=== PATIENT | female | born 1975 | race Caucasian/White ===

== ENCOUNTER 2017-12-23 10:39 | Outpatient (CLI) | payer MEDICAID ==
--- NOTE | 2017-12-24 16:37 | Mammography Report ---
SCREENING MAMMOGRAM: 12/23/2017 CLINICAL INDICATION: A 42-year-old nulliparous patient for baseline. TECHNIQUE: Routine CC and MLO projections and bilateral laterally exaggerated craniocaudal views were obtained of the breasts. FINDINGS: The breasts demonstrate heterogeneously dense fibroglandular parenchyma bilaterally. No suspicious masses, clustered microcalcifications, or regions of architectural distortion are identified. IMPRESSION: NEGATIVE EXAMINATION. RECOMMENDATION: Routine annual screening unless otherwise clinically indicated. BIRADS CATEGORY 1--NEGATIVE. STANDARD QUALIFYING STATEMENTS: 1. This examination was reviewed with the aid of Computer-Aided Detection (CAD) . 2. A negative or benign imaging report should not delay biopsy if clinically suspicious findings are present. Consider surgical consultation if warranted. More than 5 % of cancers are not identified by imaging. 3. Dense breasts may obscure an underlying neoplasm. TD: 12/24/2017 16:36 CHEO
== END 2017-12-23 10:40 | disposition home or self-care (01) ==
LOC: DI.S 10:39
PROVIDERS: ATTEND Nurse Practitioner Family
DX: Z12.31 Encounter for screening mammogram for malignant neoplasm of breast (principal)
CPT/HCPCS: 77067

== ENCOUNTER 2018-01-12 11:53 | Outpatient (CLI) | payer MEDICAID ==
[2018-01-12 17:50] LABS: BASOPHILS % (AUTO) 0.4 %; EOSINOPHILS # (AUTO) 0.1 10^3/uL (0.0-0.7); HGB - HEMOGLOBIN 13.1 g/dL (12.0-16.0); MEAN CORPUSCULAR HEMOGLOBIN 32.8 pg (27.0-31.0); MEAN CORPUSCULAR HGB CONC 33.1 g/dL (32.0-36.0); MEAN CORPUSCULAR VOLUME 99.2 fL (81.0-99.0); MEAN PLATELET VOLUME 7.9 fL (7.9-10.8); MONOCYTES # (AUTO) 0.5 10^3/uL (0.0-1.0); MONOCYTES % (AUTO) 9.6 %; NEUTROPHILS # (AUTO) 2.8 10^3/uL (1.5-6.6); PLT - PLATELET COUNT 274 10^3/uL (130-450); RED CELL DISTRIBUTION WIDTH 12.7 % (12.0-15.0); WHITE BLOOD COUNT 5.4 x10^3/uL (4.8-10.8)
[2018-01-12 17:57] LABS: ALBUMIN 4.3 g/dL (3.2-5.5); ALBUMIN/GLOBULIN RATIO 1.7 (1.0-2.2); BILIRUBIN,TOTAL 0.6 mg/dL (0.2-1.0); CALCIUM 9.6 mg/dL (8.5-10.3); CREATININE 0.7 mg/dL (0.4-1.0); TOTAL PROTEIN 6.8 g/dL (6.7-8.2)
[2018-01-12 18:13] LABS: T4 (THYROXINE) 5.87 ug/dL (6.09-12.23)
[2018-01-12 18:16] LABS: THYROID STIMULATING HORMONE 1.33 uIU/mL (0.34-5.60)
[2018-01-12 18:21] LABS: FREE T4 (FREE THYROXINE) 0.83 ng/dL (0.58-1.64)
[2018-01-12 18:44] LABS: FOLLICLE STIMULATING HORMONE 16.34 mIU/mL
[2018-01-12 18:45] LABS: LUTEINIZING HORMONE 8.92 mIU/mL
[2018-01-12 19:45] LABS: HB2 TOTAL 14.9 g/dL; HEMOGLOBIN A1C 0.43 g/dL; HEMOGLOBIN A1C % 4.8 % (4.6-6.2)
[2018-01-13 09:12] LABS: ESTRADIOL 42 pg/mL
[2018-01-14 14:32] LABS: DHEA SULFATE 111 mcg/dL (19-231)
== END 2018-01-12 11:54 | disposition home or self-care (01) ==
LOC: LAB.F 11:53
PROVIDERS: ATTEND Registered Nurse
DX: R68.82 Decreased libido (principal)
CPT/HCPCS: 36415; 80053; 82306; 82627; 82670; 83001; 83002; 83036; 84436; 84439; 84443; 85025

== ENCOUNTER 2018-03-19 10:57 | Outpatient (CLI) | payer MEDICAID ==
[2018-03-19 18:07] LABS: THYROID STIMULATING HORMONE 0.74 uIU/mL (0.34-5.60)
[2018-03-19 18:08] LABS: FREE T4 (FREE THYROXINE) 1.35 ng/dL (0.58-1.64)
== END 2018-03-19 10:58 | disposition home or self-care (01) ==
LOC: LAB.F 10:57
PROVIDERS: ATTEND Registered Nurse
DX: E03.9 Hypothyroidism, unspecified (principal)
CPT/HCPCS: 36415; 84439; 84443; 84481

== ENCOUNTER 2018-03-31 11:56 | Outpatient (CLI) | payer MEDICAID ==
[2018-03-31 13:01] LABS: T4 (THYROXINE) 7.72 ug/dL (6.09-12.23)
[2018-03-31 13:05] LABS: THYROID STIMULATING HORMONE 1.51 uIU/mL (0.34-5.60)
[2018-03-31 13:07] LABS: FREE T4 (FREE THYROXINE) 0.94 ng/dL (0.58-1.64)
[2018-04-05 15:01] LABS: THYROID PEROXIDASE ANTIBODIES 3 IU/mL (<9)
== END 2018-03-31 11:57 | disposition home or self-care (01) ==
LOC: LAB 11:56
PROVIDERS: ATTEND Registered Nurse
DX: R68.82 Decreased libido (principal); E03.9 Hypothyroidism, unspecified
CPT/HCPCS: 36415; 81599; 82670; 84436; 84439; 84443; 86376; 86800

== ENCOUNTER 2019-03-30 | Outpatient (CLI) | payer MEDICAID | END 2019-03-30 23:59 | disposition home or self-care (01) | DX: N39.0 Urinary tract infection, site not specified (principal) | CPT/HCPCS: 87086 ==

== ENCOUNTER 2019-05-25 11:42 | Outpatient (CLI) | payer MEDICAID ==
[2019-05-25 17:23] LABS: BASOPHILS % (AUTO) 0.3 %; EOSINOPHILS % (AUTO) 0.7 %; HGB - HEMOGLOBIN 12.8 g/dL (12.0-16.0); MEAN CORPUSCULAR HEMOGLOBIN 33.4 pg (27.0-31.0); MEAN CORPUSCULAR HGB CONC 33.1 g/dL (32.0-36.0); MONOCYTES # (AUTO) 0.7 10^3/uL (0.0-1.0); MONOCYTES % (AUTO) 11.8 %; NEUTROPHILS # (AUTO) 3.1 10^3/uL (1.5-6.6); NEUTROPHILS % (AUTO) 52.9 %; PLT - PLATELET COUNT 249 10^3/uL (130-450); RED BLOOD COUNT 3.83 10^6/uL (4.20-5.40); RED CELL DISTRIBUTION WIDTH 12.2 % (12.0-15.0); WHITE BLOOD COUNT 5.9 x10^3/uL (4.8-10.8)
[2019-05-25 17:51] LABS: HB2 TOTAL 12.9 g/dL; HEMOGLOBIN A1C 0.41 g/dL; HEMOGLOBIN A1C % 5.1 % (4.6-6.2)
[2019-05-25 17:54] LABS: THYROID STIMULATING HORMONE 0.61 uIU/mL (0.34-5.60)
[2019-05-25 17:55] LABS: ALBUMIN 4.1 g/dL (3.2-5.5); ALBUMIN/GLOBULIN RATIO 1.6 (1.0-2.2); ALKALINE PHOSPHATASE 37 IU/L (42-121); ALT ALANINE AMINOTRANSFERASE 17 IU/L (10-60); AST ASPARTATE AMINOTRANSFERASE 24 IU/L (10-42); BILIRUBIN,TOTAL 0.9 mg/dL (0.2-1.0); BUN - BLOOD UREA NITROGEN 12 mg/dL (6-20); CALCIUM 8.8 mg/dL (8.5-10.3); CARBON DIOXIDE - CO2 28 mmol/L (21-32); CHLORIDE 102 mmol/L (101-111); CHOL/HDL RATIO 2.1 (<4.4); CHOLESTEROL 159 mg/dL; CREATININE 0.9 mg/dL (0.4-1.0); GFR - MDRD 69 (>89); GLUCOSE 76 mg/dL (70-100); HDL CHOLESTEROL 74 mg/dL; LDL CHOLESTEROL,CALCULATED 76 mg/dL; SODIUM 137 mmol/L (135-145); TOTAL PROTEIN 6.6 g/dL (6.7-8.2); VLDL CHOLESTEROL 9 mg/dL
[2019-05-26 14:21] LABS: HIV AG/AB 4TH GEN NON-REACTIVE (NON-REACTIVE)
== END 2019-05-25 11:43 | disposition home or self-care (01) ==
LOC: LAB.S 11:42
PROVIDERS: ATTEND Registered Nurse
DX: Z00.00 Encounter for general adult medical examination without abnormal findings (principal); E03.9 Hypothyroidism, unspecified; F33.1 Major depressive disorder, recurrent, moderate; M79.7 Fibromyalgia
CPT/HCPCS: 36415; 80053; 80061; 82746; 83036; 83721; 84443; 85025; 87389

== ENCOUNTER 2020-11-02 08:00 | Outpatient (CLI) | payer MEDICAID ==
[2020-11-02 19:53] LABS: BASOPHILS % (AUTO) 0.3 %; EOSINOPHILS # (AUTO) 0.1 10^3/uL (0.0-0.7); EOSINOPHILS % (AUTO) 0.7 %; HCT - HEMATOCRIT 41.5 % (37.0-47.0); HGB - HEMOGLOBIN 13.9 g/dL (12.0-16.0); LYMPHOCYTES # (AUTO) 2.8 10^3/uL (1.5-3.5); LYMPHOCYTES % (AUTO) 41.5 %; MEAN CORPUSCULAR HEMOGLOBIN 32.8 pg (27.0-31.0); MEAN CORPUSCULAR HGB CONC 33.5 g/dL (32.0-36.0); MEAN CORPUSCULAR VOLUME 97.9 fL (81.0-99.0); MEAN PLATELET VOLUME 9.2 fL (7.9-10.8); MONOCYTES # (AUTO) 0.6 10^3/uL (0.0-1.0); MONOCYTES % (AUTO) 8.4 %; NEUTROPHILS # (AUTO) 3.3 10^3/uL (1.5-6.6); NEUTROPHILS % (AUTO) 48.8 %; PLT - PLATELET COUNT 278 10^3/uL (130-450); RED BLOOD COUNT 4.24 10^6/uL (4.20-5.40); RED CELL DISTRIBUTION WIDTH 11.4 % (12.0-15.0); WHITE BLOOD COUNT 6.8 x10^3/uL (4.8-10.8)
[2020-11-02 20:16] LABS: ALBUMIN 4.7 g/dL (3.2-5.5); ALKALINE PHOSPHATASE 42 IU/L (42-121); ALT ALANINE AMINOTRANSFERASE 16 IU/L (10-60); AST ASPARTATE AMINOTRANSFERASE 24 IU/L (10-42); BILIRUBIN,TOTAL 0.6 mg/dL (0.2-1.0); BUN - BLOOD UREA NITROGEN < 5 mg/dL (6-20); CALCIUM 9.6 mg/dL (8.5-10.3); CARBON DIOXIDE - CO2 25 mmol/L (21-32); CHLORIDE 101 mmol/L (101-111); CREATININE 0.7 mg/dL (0.4-1.0); GFR - MDRD 91 (>89); GLUCOSE 73 mg/dL (70-100); POTASSIUM 4.1 mmol/L (3.5-5.0); SODIUM 141 mmol/L (135-145); TOTAL PROTEIN 7.1 g/dL (6.7-8.2)
== END 2020-11-02 23:59 | disposition home or self-care (01) ==
LOC: LAB.S 08:00
PROVIDERS: ATTEND Physician Assistant Medical
DX: R10.9 Unspecified abdominal pain (principal)
CPT/HCPCS: 36415; 80053; 85025

== ENCOUNTER 2020-11-18 13:32 | Outpatient (CLI) | payer MEDICAID ==
--- NOTE | 2020-11-19 13:36 | Mammography Report ---
BILATERAL DIGITAL SCREENING MAMMOGRAM 3D/2D WITH EXAGGERATED CC: 11/18/2020 CLINICAL: Routine screening. Routine screening. Comparison: 12/23/2017 The tissue of both breasts is heterogeneously dense. This may lower the sensitivity of mammography. There is a possible 0.7 cm irregular equal density focal asymmetry in the right breast at 11 o'clock middle depth. No other significant masses, calcifications, or other findings are seen in either breast. IMPRESSION: INCOMPLETE: NEEDS ADDITIONAL IMAGING EVALUATION The possible 0.7 cm irregular equal density focal asymmetry in the right breast is indeterminate. Ad ditional views with possible ultrasound are recommended. This exam was interpreted at Station ID: [id number]. NOTE: For mammograms, a report in lay terms will be sent to the patient. Approximately 15% of breast malignancies will not be visualized mammographically. In the management of a palpable breast mass, a negative mammogram must not discourage biopsy of a clinically suspicious lesion. Electronically Signed By: Adraino Armstrong M.D. aty/:11/19/2020 07:45:46 ACR BI-RADS Category 0: Incomplete 3340F PARENCHYMAL PATTERN: (D) - The breast(s) demonstrate(s) heterogeneously dense fibroglandular parregany ma. BI-RADS CATEGORY: (0) - 0 Mammo and [place] [id number] Immediate follow-up LATERALITY: (R)
== END 2020-11-18 13:33 | disposition home or self-care (01) ==
LOC: DI.S 13:32
PROVIDERS: ATTEND Naturopath
DX: Z12.31 Encounter for screening mammogram for malignant neoplasm of breast (principal); N64.89 Other specified disorders of breast

== ENCOUNTER 2020-11-20 09:19 | Outpatient (CLI) | payer MEDICAID ==
--- NOTE | 2020-11-20 13:06 | Ultrasound Report ---
PROCEDURE: Pelvic w/Transvaginal INDICATIONS: RLQ ABD PAIN, ABD PAIN TECHNIQUE: Real-time scanning was performed of the pelvic organs, with image documentation. Additional endovagi nal scanning was necessary due to incomplete visualization of the adnexal and endometrial structures by transabdominal scanning. COMPARISON: None. FINDINGS: No pathologic free abdominal or pelvic fluid. The uterine body measures 4.2 x 4.7 x 8.6 cm. No uterine mass. Individual stripe complex measures 9 m m in double layer thickness. Multiple small nabothian cysts noted. The right ovary measures 2.4 x 2.4 x 3.1 cm and contains a few subcentimeter follicles. The left ovar y measures 2.3 x 3.0 x 3.0 cm in contains a few subcentimeter follicles. There is also a hypoechoic m ass measuring 1.9 cm in the left ovary. This may represent a resolving hemorrhagic cyst or endometrio ma. IMPRESSION: Hypoechoic left ovarian mass which may represent either resolving hemorrhagic cyst or endometrioma. F ollow-up in 4-8 weeks recommended. Reviewed by: Robert Caceres MD on 11/20/2020 1:05 PM PDT Approved by: Robert Caceres MD on 11/20/2020 1:05 PM PDT Station ID: [id number]
--- NOTE | 2020-11-20 13:08 | Ultrasound Report ---
PROCEDURE: Abdomen Complete INDICATIONS: Right lower quadrant abdominal pain TECHNIQUE: Real-time scanning was performed of the abdominal and retroperitoneal organs, with image documentatio n. COMPARISON: None. FINDINGS: Liver: Liver is normal in size and homogeneous in echotexture. Gallbladder: Normally distended without wall thickening or shadowing Mahad. No pericholecystic flu id. Biliary ducts: Normal caliber. Pancreas: Visualized portions of the pancreas are sonographically normal. Spleen: Spleen is normal in size and homogeneous in echotexture. Kidneys: There is a nonvascular hyperechoic mass consistent with angiomyolipoma measuring 2.8 cm in t he right upper pole. Mild left pelviectasis. No hydronephrosis or shadowing calculus. Aorta: Visualized aorta is normal in caliber at less than 3 cm. Iliacs: Proximal common iliac arteries are normal in caliber at less than 2.5 cm. IVC: Intrahepatic inferior vena cava is patent. Miscellaneous: No free abdominal fluid. IMPRESSION: No findings to explain symptoms. 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 Reviewed by: Robert Caceres MD on 11/20/2020 1:07 PM PDT Approved by: Robert Cacrees MD on 11/20/2020 1:07 PM PDT Station ID: [id number]
== END 2020-11-20 09:20 | disposition home or self-care (01) ==
LOC: DI 09:19
PROVIDERS: ATTEND Physician Assistant Medical
DX: R10.31 Right lower quadrant pain (principal); N83.8 Other noninflammatory disorders of ovary, fallopian tube and broad ligament; D17.71 Benign lipomatous neoplasm of kidney

== ENCOUNTER 2020-11-29 08:35 | Outpatient (CLI) | payer MEDICAID ==
--- NOTE | 2020-11-30 10:49 | Ultrasound Report ---
LIMITED ULTRASOUND OF RIGHT BREAST: 11/29/2020 CLINICAL: Patient returns today to evaluate an asymmetry in the right breast. Comparison is made to exams dated: 11/29/2020 mammogram, 11/18/2020 mammogram - [facility], and 12/23/2017 mammogram - [facility]. Ultrasound of the right breast 11 o'clock region was performed. Miller scale images of the real-time e xamination were reviewed. The asymmetry seen on the prior mammograms has no sonographic correlate. No suspicious finding otherw ise in the upper outer quadrant. IMPRESSION: PROBABLY BENIGN The mammographically demonstrated 0.7 cm asymmetry in the right breast has no sonographic correlate. This is probably benign fibroglandular tissue, although this is not definitive. A follow-up mammogra m in 6 months is recommended to demonstrate stability. This exam was interpreted at Station ID: [id number]. Electronically Signed By: Robert Caceres M.D. jr/:11/29/2020 09:55:04 Ultrasound BI-RADS: 3 Probably benign BI-RADS CATEGORY: (3) - 3 Mammogram [id number] 6 month follow-up LATERALITY: (B)
--- NOTE | 2020-11-30 10:49 | Mammography Report ---
UNILATERAL RIGHT DIGITAL DIAGNOSTIC MAMMOGRAM 3D/2D: 11/29/2020 CLINICAL: Patient returns today to evaluate a focal asymmetry in the right breast. Comparison is made to exams dated: 11/18/2020 mammogram - [facility] and 12/23/2017 mammogram - [facility]. The tissue of right breast is heterogeneously dense. This may lower the sensitivity of mammography. There is a 0.7 cm asymmetry in the right breast at 11 o'clock middle depth. This is less prominent w ith spot compression views. No other significant masses or calcifications are seen in the breast. There has been no significant interval change. IMPRESSION: INCOMPLETE: NEEDS ADDITIONAL IMAGING EVALUATION The 0.7 cm asymmetry in the right breast is indeterminate. An ultrasound is recommended and has been scheduled to immediately follow. This exam was interpreted at Station ID: [id number]. NOTE: For mammograms, a report in lay terms will be sent to the patient. Approximately 15% of breast malignancies will not be visualized mammographically. In the management of a palpable breast mass, a negative mammogram must not discourage biopsy of a clinically suspicious lesion. Electronically Signed By: Robert Caceres M.D. jr/:11/29/2020 09:53:21 ACR BI-RADS Category 0: Incomplete 3340F PARENCHYMAL PATTERN: (D) - The breast(s) demonstrate(s) heterogeneously dense fibroglandular lucinda zacarias. BI-RADS CATEGORY: (0) - 0 Ultrasound [id number] Immediate follow-up LATERALITY: (B)
== END 2020-11-29 08:36 | disposition home or self-care (01) ==
LOC: DI 08:35
PROVIDERS: ATTEND Physician Assistant Medical
DX: R92.8 Other abnormal and inconclusive findings on diagnostic imaging of breast (principal); N64.89 Other specified disorders of breast

== ENCOUNTER 2020-12-07 14:10 | Outpatient (CLI) | payer MEDICAID | END 2020-12-07 14:11 | disposition home or self-care (01) | LOC: COV 14:10 | PROVIDERS: ATTEND Physician Assistant | DX: Z01.812 Encounter for preprocedural laboratory examination (principal); Z20.822 Contact with and (suspected) exposure to COVID-19 ==

== ENCOUNTER 2020-12-31 13:32 | Outpatient (CLI) | payer MEDICAID ==
--- NOTE | 2020-12-31 15:30 | Ultrasound Report ---
PROCEDURE: Pelvic w/Transvaginal INDICATIONS: OVARIAN MASS, RENAL ANGIOMYOLOPOMA TECHNIQUE: Real-time scanning was performed of the pelvic organs, with image documentation. Additional endovagi nal scanning was necessary due to incomplete visualization of the adnexal and endometrial structures by transabdominal scanning. COMPARISON: 10/31/2020 pelvic ultrasound. FINDINGS: No pathologic free abdominal or pelvic fluid. Uterus: Uterus is normal in size at 3.3 x 3.6 x 7.3 cm. The endometrium measures 4.9 mm in combined thickness. Ovaries: The ovaries bilaterally are normal in size and echotexture. There is no sign of ovarian tor ethan or mass. The right ovary measures 2.7 x 2.6 x 2.5 cm and the left measures 2.7 x 2.7 x 1.8 cm. IMPRESSION: No suspicion for ovarian mass bilaterally, or ovarian torsion. Normal-appearing uterus and endometria l lining. The hypoechoic structure at the left ovary has resolved. Reviewed by: Kashif Garcia MD on 12/31/2020 3:28 PM PDT Approved by: Kashif Garcia MD on 12/31/2020 3:28 PM PDT Station ID: [id number]
== END 2020-12-31 13:33 | disposition home or self-care (01) ==
LOC: DI 13:32
PROVIDERS: ATTEND Registered Nurse
DX: N83.9 Noninflammatory disorder of ovary, fallopian tube and broad ligament, unspecified (principal); D17.71 Benign lipomatous neoplasm of kidney

== ENCOUNTER 2021-07-05 12:32 | Outpatient (CLI) | payer MEDICAID ==
[2021-07-05 19:54] LABS: BASOPHILS % (AUTO) 0.4 %; EOSINOPHILS # (AUTO) 0.1 10^3/uL (0.0-0.7); EOSINOPHILS % (AUTO) 0.9 %; HCT - HEMATOCRIT 38.1 % (37.0-47.0); HGB - HEMOGLOBIN 12.5 g/dL (12.0-16.0); LYMPHOCYTES # (AUTO) 1.6 10^3/uL (1.5-3.5); LYMPHOCYTES % (AUTO) 29.6 %; MEAN CORPUSCULAR HEMOGLOBIN 33.8 pg (27.0-31.0); MEAN CORPUSCULAR HGB CONC 32.8 g/dL (32.0-36.0); MEAN PLATELET VOLUME 9.2 fL (7.9-10.8); MONOCYTES # (AUTO) 0.7 10^3/uL (0.0-1.0); MONOCYTES % (AUTO) 12.5 %; NEUTROPHILS # (AUTO) 3.1 10^3/uL (1.5-6.6); NEUTROPHILS % (AUTO) 56.4 %; PLT - PLATELET COUNT 279 10^3/uL (130-450); RED CELL DISTRIBUTION WIDTH 11.6 % (12.0-15.0); WHITE BLOOD COUNT 5.5 x10^3/uL (4.8-10.8)
[2021-07-05 20:41] LABS: THYROID STIMULATING HORMONE 0.63 uIU/mL (0.34-5.60)
[2021-07-05 20:43] LABS: FREE T3 3.53 pg/mL (2.5-3.9); FREE T4 (FREE THYROXINE) 0.86 ng/dL (0.58-1.64)
[2021-07-09 09:22] LABS: ANA SCREEN NEGATIVE (NEGATIVE)
== END 2021-07-05 12:33 | disposition home or self-care (01) ==
LOC: LAB.S 12:32
PROVIDERS: ATTEND Naturopath
DX: E03.9 Hypothyroidism, unspecified (principal); M32.9 Systemic lupus erythematosus, unspecified; Z13.6 Encounter for screening for cardiovascular disorders; Z13.220 Encounter for screening for lipoid disorders; Z13.0 Encounter for screening for diseases of the blood and blood-forming organs and certain disorders involving the immune mechanism; Z13.1 Encounter for screening for diabetes mellitus; Z13.29 Encounter for screening for other suspected endocrine disorder
CPT/HCPCS: 36415; 84439; 84443; 84481; 84482; 85025; 86038; 86141

== ENCOUNTER 2021-07-06 11:08 | Outpatient (CLI) | payer MEDICAID ==
[2021-07-06 15:33] LABS: ALBUMIN/GLOBULIN RATIO 1.5 (1.0-2.2); ALKALINE PHOSPHATASE 44 IU/L (42-121); ALT ALANINE AMINOTRANSFERASE 19 IU/L (10-60); AST ASPARTATE AMINOTRANSFERASE 26 IU/L (10-42); BUN - BLOOD UREA NITROGEN 13 mg/dL (6-20); CALCIUM 9.2 mg/dL (8.5-10.3); CARBON DIOXIDE - CO2 28 mmol/L (21-32); CHLORIDE 106 mmol/L (101-111); CHOL/HDL RATIO 2.4 (<4.4); CHOLESTEROL 197 mg/dL; CREATININE 0.8 mg/dL (0.4-1.0); GFR - MDRD 78 (>89); GLUCOSE 82 mg/dL (70-100); HDL CHOLESTEROL 81 mg/dL; LDL CHOLESTEROL,CALCULATED 105 mg/dL; LDL/HDL RATIO 1.3 (<4.4); POTASSIUM 4.1 mmol/L (3.5-5.0); SODIUM 140 mmol/L (135-145); TOTAL PROTEIN 6.6 g/dL (6.7-8.2); TRIGLYCERIDES 55 mg/dL; VLDL CHOLESTEROL 11 mg/dL
== END 2021-07-06 11:09 | disposition home or self-care (01) ==
LOC: LAB.S 11:08
PROVIDERS: ATTEND Naturopath
DX: Z13.0 Encounter for screening for diseases of the blood and blood-forming organs and certain disorders involving the immune mechanism (principal); Z13.1 Encounter for screening for diabetes mellitus; Z13.220 Encounter for screening for lipoid disorders; Z13.29 Encounter for screening for other suspected endocrine disorder; E03.9 Hypothyroidism, unspecified; M32.9 Systemic lupus erythematosus, unspecified; Z13.6 Encounter for screening for cardiovascular disorders
CPT/HCPCS: 36415; 80053; 80061; 83721

== ENCOUNTER 2021-08-19 13:00 | Outpatient (CLI) | payer MEDICAID ==
[2021-08-20 08:25] VITALS: BP 128/86
--- NOTE | 2021-08-20 08:25 | SLEEP CARE CONSULTATION ---
Information from patient questionnaire entered by Ravindra Elias MA. I have reviewed and concur with the information entered by Ravindra Elias MA. This document represents the service I personally performed and the decisions made by me, Jeanna Tabor MD, [facility]. History of Present Illness Service Date and Time: 08/19/2021 1300 Reason for Visit: New patient Date of Onset: off and on for 30 years Usual bedtime: midnight Time it takes to fall asleep: 2-4minutes Snores at night: No Observed to quit breathing while asleep: No Sleeps alone due to snoring: No Reasons for waking at night: reports: Pain Toss, Turn, or Twitch while sleeping: Yes Recalls having dreams: Yes Usually gets out of bed at: 1000 am Feels refreshed in the morning: No Morning headache: Yes Sleepy or fatigued during the day: Yes Ever fallen asleep while driving: No Takes day naps: No Prior sleep studies: No Additional HPI information: I have the pleasure of seeing Ms. Donaldson today regarding the possibility of her having obstructive sleep apnea. As you know, she is a 45 year old lady who complains of insomnia for 30 years. She says her insomnia comes in cycles. The patient tells me that she normally goes to bed around midnight, and it takes her approximately 30 minutes to fall asleep. She has not been told that she snores loudly or irregularly at night. She has never been observed to stop breathing in her sleep. Her sleeps in the same bed. She can recall waking up on the average of 2 - 4 times during the night. Most of the time she wakes up because of pain. She has never awakened because of her own snoring, choking, or having to gasp for air. There is a lot of tossing and turning in her sleep. No somniloquy (sleep talking) or somnambulism (sleep walking). Generally, she can recall having dreams. In the morning she usually gets up out of the bed around 10 a.m. not feeling refreshed nor rested. She usually has a morning headache. During the day she complains of feeling sleepy and fatigued. Her score on Thorofare Sleepiness Scale is 10 out of 24. She never has fallen asleep while driving nor has had any accident due to sleepiness. She usually does not take naps during the day. She reports having impaired concentration during the day. - Parasomnia Symptoms Ever been unable to move upon waking from sleep: No Walks in sleep: No Talks in sleep: No Ever acted out dreams in sleep: Yes Ever felt weak in the knees when startled or emotional: No Problems with memory or concentration: Yes Subjective Initial Thorofare Sleepiness Scale score: 10 (2020) Past Medical History Past Medical History: reports: Arthritis, Hypothyroidism, Anemia, Depression Social History The patient's occupation is a [employer]. Patient is Single and lives in [place]. Have you smoked in the past 12 months: No Alcohol use: Yes Alcohol amount and frequency: 2-3 x daily Caffeine use: Yes Caffeine amount and frequency: 1 x daily Family History Family history of sleep disordered breathing: Yes Family Hx Sleep Apnea: Father: Snoring, Sleep apnea - Treated, Grandparent: Snoring Allergies and Home Medications Drug allergies reviewed: Yes Home medication list reviewed: Yes Review of Systems Cardiovascular: reports: palpitations, leg or foot swelling Respiratory: denies: shortness of breath, wheeze, sputum production, chronic cough, other Gastrointestinal: denies: heartburn, difficulty swallowing, nausea, vomitting, diarrhea, abdominal pain, other Urinary: reports: incontinence, frequency, urgency Neurological: reports: headaches Psychiatric: reports: depression Ear/Nose/Throat: reports: sinus problems, wisdom teeth removed Endocrine: reports: thyroid disease, sluggishness, increased urination, unexplained weakness Musculoskeletal: reports: joint pain, neck pain, back pain, joint swelling, muscle pain or cramping, mobility problems Physical Exam Vital signs obtained and entered by: Shavon ELIAS CMA [facility] Blood Pressure: 128/86 (right) Cuff size: wrist Heart Rate: 99 O2 Saturation: 74 Height: 5 ft 7.5 in Weight: 142 lb Body Mass Index: 21.9 BMI Classification: Healthy weight Impression and Plan IMPRESSION: 1. Insomnia, chronic, due to excessive time spent in bed of 10+ hours a night. The patient goes to sleep at midnight but does not get out of bed until after 10 am. Assuming the normal sleep requirement of 8 hours a night, it is only appropriate that the patient lies awake for 2 hours during the night. The excessive time spent in bed can also lead to fluctuation in the amount of sleep. Alcohol consumption near bedtime can also cause awakenings during the night. An in-laboratory polysomnography will be performed to rule out sleep-disordered breathing. Plan: 1. Schedule polysomnography and return in 1 to 2 weeks after the study to discuss result and initiate therapy. 2. Maintain a regular wake up time and spend no more than 8 hours in bed at night. Avoid naps. The patient chooses to go to bed at 1 am and wakes up no later than 9 am. She was given a sleep log to keep. 3. Avoid alcohol, sedative and muscle relaxant around bedtime. Follow up with Sleep Care in: 1-2 months Visit Type: In Office Time Spent with Patient (minutes): 15 Provider Statement: I spent 100% of the Face to Face Visit with the patient with greater than 50% spent counseling the patient and coordination of care.
== END 2021-08-19 13:01 | disposition home or self-care (01) ==
LOC: SC 13:00
PROVIDERS: ATTEND Nurse Practitioner Family
DX: G47.00 Insomnia, unspecified (principal)
CPT/HCPCS: 99202; 99212

== ENCOUNTER 2021-08-19 14:30 | Outpatient (CLI) | payer MEDICAID ==
--- NOTE | 2021-08-19 16:35 | XRAY Report ---
PROCEDURE: Knee 4 View BILAT INDICATIONS: BILATERAL KNEE PAIN TECHNIQUE: 4 views of each knee are obtained. COMPARISON: None. FINDINGS: Bones: No fractures or dislocations. No suspicious bony lesions. Left knee anterior cruciate ligam ent replacement has been performed. Mild left knee periarticular osteophyte formation is present. Soft tissues: No joint effusion. No suspicious soft tissue calcifications. IMPRESSION: 1. Postsurgical sequelae at the left knee. 2. Left knee osteoarthritis. Reviewed by: Sai Nieto MD on 08/19/2021 4:34 PM PST Approved by: Sai Nieto MD on 08/19/2021 4:34 PM PST Station ID: [id number]
== END 2021-08-19 23:59 | disposition home or self-care (01) ==
LOC: DI.N 14:30
PROVIDERS: ATTEND Physician Assistant
DX: M17.12 Unilateral primary osteoarthritis, left knee (principal); M25.561 Pain in right knee

== ENCOUNTER 2021-09-04 12:49 | Outpatient (CLI) | payer MEDICAID ==
--- NOTE | 2021-09-05 08:37 | Mammography Report ---
UNILATERAL RIGHT DIGITAL DIAGNOSTIC MAMMOGRAM 3D/2D: 09/04/2021 CLINICAL: Patient returns for a 6 month follow up of the right breast. Comparison is made to exams dated: 11/29/2020 ultrasound, 11/29/2020 mammogram, 11/18/2020 mammogram - [facility], and 12/23/2017 mammogram - [facility]. The tissue of ri ght breast is heterogeneously dense. This may lower the sensitivity of mammography. The previously described asymmetry in the right breast at 11 o'clock middle depth continues to appear less prominent and decreased in size and was not seen on the prior ultrasound. No other significant masses or calcifications are seen in the breast. IMPRESSION: PROBABLY BENIGN The asymmetry in the right breast resembles fibroglandular tissue and is probably benign. A follow-up bilateral mammogram with possible right ultrasound in 6 months is recommended to demonstr ate continued stability versus resolution. Findings and recommendations were conveyed to the patient during today's evaluation. This exam was interpreted at Station ID: [id number]. NOTE: For mammograms, a report in lay terms will be sent to the patient. Approximately 15% of breast malignancies will not be visualized mammographically. In the management of a palpable breast mass, a negative mammogram must not discourage biopsy of a clinically suspicious lesion. Electronically Signed By: Adriano Armstrong M.D. aty/:09/04/2021 13:38:56 ACR BI-RADS Category 3: Probably benign 3343F PARENCHYMAL PATTERN: (D) - The breast(s) demonstrate(s) heterogeneously dense fibroglandular lucinda zacarias. BI-RADS CATEGORY: (3) - 3 Mammo and US [id number] 6 month follow-up LATERALITY: (B)
== END 2021-09-04 12:50 | disposition home or self-care (01) ==
LOC: DI 12:49
PROVIDERS: ATTEND Obstetrics & Gynecology
DX: N63.0 Unspecified lump in unspecified breast (principal); R92.8 Other abnormal and inconclusive findings on diagnostic imaging of breast

== ENCOUNTER 2022-02-20 07:32 | Outpatient (CLI) | payer MEDICAID ==
[2022-02-20 14:20] LABS: BASOPHILS % (AUTO) 0.5 %; EOSINOPHILS # (AUTO) 0.1 10^3/uL (0.0-0.7); EOSINOPHILS % (AUTO) 2.7 %; HGB - HEMOGLOBIN 13.3 g/dL (12.0-16.0); LYMPHOCYTES # (AUTO) 1.9 10^3/uL (1.5-3.5); LYMPHOCYTES % (AUTO) 42.3 %; MEAN CORPUSCULAR HEMOGLOBIN 33.2 pg (27.0-31.0); MEAN CORPUSCULAR HGB CONC 33.3 g/dL (32.0-36.0); MEAN CORPUSCULAR VOLUME 99.8 fL (81.0-99.0); MEAN PLATELET VOLUME 9.6 fL (7.9-10.8); MONOCYTES % (AUTO) 21.6 %; NEUTROPHILS # (AUTO) 1.5 10^3/uL (1.5-6.6); NEUTROPHILS % (AUTO) 32.7 %; PLT - PLATELET COUNT 212 10^3/uL (130-450); RED BLOOD COUNT 4.01 10^6/uL (4.20-5.40); RED CELL DISTRIBUTION WIDTH 11.3 % (12.0-15.0); WHITE BLOOD COUNT 4.4 x10^3/uL (4.8-10.8)
[2022-02-20 14:34] LABS: ALBUMIN 4.1 g/dL (3.2-5.5); ALBUMIN/GLOBULIN RATIO 1.5 (1.0-2.2); ALKALINE PHOSPHATASE 44 IU/L (42-121); ALT ALANINE AMINOTRANSFERASE 15 IU/L (10-60); AST ASPARTATE AMINOTRANSFERASE 29 IU/L (10-42); BILIRUBIN,TOTAL 0.5 mg/dL (0.2-1.0); BUN - BLOOD UREA NITROGEN 8 mg/dL (6-20); CARBON DIOXIDE - CO2 27 mmol/L (21-32); CHLORIDE 99 mmol/L (101-111); CHOL/HDL RATIO 2.6 (<4.4); CHOLESTEROL 165 mg/dL; CREATININE 0.9 mg/dL (0.4-1.0); GFR - MDRD 68 (>89); GLUCOSE 72 mg/dL (70-100); HDL CHOLESTEROL 63 mg/dL; LDL CHOLESTEROL,CALCULATED 84 mg/dL; LDL/HDL RATIO 1.3 (<4.4); POTASSIUM 4.1 mmol/L (3.5-5.0); SODIUM 136 mmol/L (135-145); TOTAL PROTEIN 6.8 g/dL (6.7-8.2); TRIGLYCERIDES 92 mg/dL; VLDL CHOLESTEROL 18 mg/dL
[2022-02-20 14:47] LABS: THYROID STIMULATING HORMONE 1.49 uIU/mL (0.34-5.60)
== END 2022-02-20 07:33 | disposition home or self-care (01) ==
LOC: LAB.S 07:32
PROVIDERS: ATTEND Registered Nurse
DX: L65.9 Nonscarring hair loss, unspecified (principal); Z13.228 Encounter for screening for other metabolic disorders; Z13.220 Encounter for screening for lipoid disorders; Z13.29 Encounter for screening for other suspected endocrine disorder; Z13.0 Encounter for screening for diseases of the blood and blood-forming organs and certain disorders involving the immune mechanism
CPT/HCPCS: 36415; 80050; 80061; 82306; 82607; 83721

== ENCOUNTER 2022-12-05 14:38 | Outpatient (CLI) | payer MEDICAID ==
[2022-12-05 19:38] LABS: BASOPHILS % (AUTO) 0.4 %; EOSINOPHILS # (AUTO) 0.1 10^3/uL (0.0-0.7); EOSINOPHILS % (AUTO) 1.1 %; HCT - HEMATOCRIT 39.7 % (37.0-47.0); LYMPHOCYTES % (AUTO) 35.7 %; MEAN CORPUSCULAR HGB CONC 32.7 g/dL (32.0-36.0); MEAN CORPUSCULAR VOLUME 97.8 fL (81.0-99.0); MEAN PLATELET VOLUME 8.7 fL (7.9-10.8); MONOCYTES # (AUTO) 0.9 10^3/uL (0.0-1.0); MONOCYTES % (AUTO) 10.1 %; NEUTROPHILS # (AUTO) 4.4 10^3/uL (1.5-6.6); NEUTROPHILS % (AUTO) 52.5 %; PLT - PLATELET COUNT 309 10^3/uL (130-450); RED BLOOD COUNT 4.06 10^6/uL (4.20-5.40); RED CELL DISTRIBUTION WIDTH 12.2 % (12.0-15.0); WHITE BLOOD COUNT 8.4 x10^3/uL (4.8-10.8)
== END 2022-12-05 14:39 | disposition home or self-care (01) ==
LOC: LAB.S 14:38
PROVIDERS: ATTEND Registered Nurse
DX: Z00.00 Encounter for general adult medical examination without abnormal findings (principal); Z13.0 Encounter for screening for diseases of the blood and blood-forming organs and certain disorders involving the immune mechanism
CPT/HCPCS: 36415; 82306; 85025

== ENCOUNTER 2023-01-16 08:02 | Outpatient (CLI) | payer MEDICAID ==
[2023-01-16 14:19] LABS: BASOPHILS # (AUTO) 0.1 10^3/uL (0.0-0.1); BASOPHILS % (AUTO) 0.8 %; EOSINOPHILS # (AUTO) 0.2 10^3/uL (0.0-0.7); EOSINOPHILS % (AUTO) 2.5 %; HCT - HEMATOCRIT 39.4 % (37.0-47.0); HGB - HEMOGLOBIN 12.9 g/dL (12.0-16.0); LYMPHOCYTES # (AUTO) 3.3 10^3/uL (1.5-3.5); LYMPHOCYTES % (AUTO) 51.1 %; MEAN CORPUSCULAR HEMOGLOBIN 31.7 pg (27.0-31.0); MEAN CORPUSCULAR HGB CONC 32.7 g/dL (32.0-36.0); MEAN CORPUSCULAR VOLUME 96.8 fL (81.0-99.0); MEAN PLATELET VOLUME 9.3 fL (7.9-10.8); MONOCYTES # (AUTO) 0.7 10^3/uL (0.0-1.0); MONOCYTES % (AUTO) 10.9 %; NEUTROPHILS # (AUTO) 2.3 10^3/uL (1.5-6.6); NEUTROPHILS % (AUTO) 34.5 %; PLT - PLATELET COUNT 285 10^3/uL (130-450); RED BLOOD COUNT 4.07 10^6/uL (4.20-5.40); RED CELL DISTRIBUTION WIDTH 12.4 % (12.0-15.0); WHITE BLOOD COUNT 6.5 x10^3/uL (4.8-10.8)
[2023-01-16 14:56] LABS: THYROID STIMULATING HORMONE 1.96 uIU/mL (0.34-5.60)
[2023-01-16 15:23] LABS: ALBUMIN 4.1 g/dL (3.2-5.5); ALBUMIN/GLOBULIN RATIO 1.4 (1.0-2.2); ALKALINE PHOSPHATASE 46 IU/L (42-121); ALT ALANINE AMINOTRANSFERASE 16 IU/L (10-60); AST ASPARTATE AMINOTRANSFERASE 20 IU/L (10-42); BILIRUBIN,TOTAL 0.8 mg/dL (0.2-1.0); BUN - BLOOD UREA NITROGEN 9 mg/dL (6-20); CALCIUM 8.9 mg/dL (8.5-10.3); CARBON DIOXIDE - CO2 26 mmol/L (21-32); CHLORIDE 108 mmol/L (101-111); CHOL/HDL RATIO 3.1 (<4.4); CHOLESTEROL 191 mg/dL; CREATININE 0.8 mg/dL (0.4-1.0); GFR - MDRD 77 (>89); GLUCOSE 83 mg/dL (70-100); HDL CHOLESTEROL 62 mg/dL; LDL CHOLESTEROL,CALCULATED 117 mg/dL; LDL/HDL RATIO 1.9 (<4.4); POTASSIUM 3.8 mmol/L (3.5-5.0); SODIUM 139 mmol/L (135-145); TRIGLYCERIDES 60 mg/dL; VLDL CHOLESTEROL 12 mg/dL
== END 2023-01-16 08:03 | disposition home or self-care (01) ==
LOC: LAB.S 08:02
PROVIDERS: ATTEND Registered Nurse
DX: Z00.00 Encounter for general adult medical examination without abnormal findings (principal); Z79.899 Other long term (current) drug therapy; Z13.220 Encounter for screening for lipoid disorders; Z13.29 Encounter for screening for other suspected endocrine disorder; Z13.0 Encounter for screening for diseases of the blood and blood-forming organs and certain disorders involving the immune mechanism; F10.11 Alcohol abuse, in remission
CPT/HCPCS: 36415; 80050; 80061; 82306; 82607; 83721

== ENCOUNTER 2023-04-01 12:30 | Outpatient (CLI) | payer MEDICAID ==
--- NOTE | 2023-04-02 09:21 | Mammography Report ---
BILATERAL DIGITAL SCREENING MAMMOGRAM 3D/2D WITH EXAGGERATED CC: 04/01/2023 CLINICAL: Routine screening. Comparison is made to exams dated: 03/14/2022 mammogram, 09/04/2021 mammogram, 11/29/2020 mammogram, and 11/18/2020 mammogram - [facility]. Both breasts are heterogeneously dense, which may obscure small masses (category c / 51-75% glandular tissue). No significant masses, calcifications, or other findings are seen in either breast. There has been no significant interval change. IMPRESSION: NEGATIVE There is no mammographic evidence of malignancy. A 1 year screening mammogram is recommended. Based on Tyrer-Cuzick model (a risk assessment model), the patient's lifetime risk is 20.0% and her 1 0 year risk is 4.0%. If a patient has an elevated risk, a more comprehensive evaluation should be con sidered and/or a referral to a genetic counselor. The [place] [employer], [place] [employer], and NCCN Guidelines advise the consideration of Breast MRI as an adjunct to screening mammog good in patients whose "Lifetime risk to develop breast cancer" is 20% or higher. This exam was interpreted at Station ID: [id number]. NOTE: For mammograms, a report in lay terms will be sent to the patient. Approximately 15% of breast malignancies will not be visualized mammographically. In the management of a palpable breast mass, a negative mammogram must not discourage biopsy of a clinically suspicious lesion. Electronically Signed By: Leah burnett/arnoldo:04/01/2023 16:54:02 letter sent: No_Letter ACR BI-RADS Category 1: Negative 3341F PARENCHYMAL PATTERN: (D) - The breast(s) demonstrate(s) heterogeneously dense fibroglandular parmoon zacarias. BI-RADS CATEGORY: (1) - 1 Mammogram [id number] 1 year screening LATERALITY: (B)
== END 2023-04-01 12:31 | disposition home or self-care (01) ==
LOC: DI.S 12:30
PROVIDERS: ATTEND Nurse Practitioner
DX: Z12.31 Encounter for screening mammogram for malignant neoplasm of breast (principal)

== ENCOUNTER 2023-07-17 19:05 | Outpatient (CLI) | payer MEDICAID ==
[2023-07-17 19:19] LABS: HCT - HEMATOCRIT 40.8 % (37.0-47.0); HGB - HEMOGLOBIN 13.2 g/dL (12.0-16.0); MEAN CORPUSCULAR HEMOGLOBIN 31.2 pg (27.0-31.0); MEAN CORPUSCULAR HGB CONC 32.4 g/dL (32.0-36.0); MEAN CORPUSCULAR VOLUME 96.5 fL (81.0-99.0); MEAN PLATELET VOLUME 8.9 fL (7.9-10.8); RED BLOOD COUNT 4.23 10^6/uL (4.20-5.40); RED CELL DISTRIBUTION WIDTH 12.4 % (12.0-15.0)
[2023-07-17 20:08] LABS: MAGNESIUM 1.9 mg/dL (1.7-2.3)
== END 2023-07-17 19:06 | disposition home or self-care (01) ==
LOC: LAB 19:05
PROVIDERS: ATTEND Registered Nurse
DX: R53.83 Other fatigue (principal)
CPT/HCPCS: 36415; 82728; 83540; 83735; 84466; 85027

== ENCOUNTER 2023-12-28 07:56 | Outpatient (CLI) | payer BC, MEDICAID ==
--- NOTE | 2023-12-28 12:01 | XRAY Report ---
PROCEDURE: Knee 4+V BL INDICATIONS: BILATERAL KNEE PAIN TECHNIQUE: 4 views of the knee(s) were acquired. 5 images. COMPARISON: Knee radiographs 08/19/2021. FINDINGS: Bones: No fractures or dislocations. Left ACL repair. Possible loose body is again seen. Anchors. Mi ld degenerative changes at the left knee. No suspicious bony lesions. Soft tissues: No knee joint effusion. No suspicious soft tissue calcifications or masses. IMPRESSION: Mild left knee DJD. Prior left ACL repair. No significant joint effusion. No significant right knee osteoarthritis. Reviewed by: Bal Garcia MD on 12/28/2023 12:00 PM PDT Approved by: Bal Garcia MD on 12/28/2023 12:00 PM PDT Station ID: [id number]
== END 2023-12-28 07:57 | disposition home or self-care (01) ==
LOC: DI.S 07:56
PROVIDERS: ATTEND Physician Assistant Surgical
DX: M17.12 Unilateral primary osteoarthritis, left knee (principal); M25.561 Pain in right knee